=== PATIENT | female | born 1955 | race Caucasian/White ===

== ENCOUNTER → 2016-10-30 | Outpatient (CLI) | payer BC ==
--- NOTE | 2016-10-30 08:55 | MM ---
Reason for exam: additional evaluation requested from prior study. Last mammogram was performed 4 years and 3 months ago. History: Patient is postmenopausal. Physical Findings: Nurse did not find any significant physical abnormalities on exam. MG Diagnostic Mammo w CAD SOPHIA Bilateral CC and MLO view(s) were taken. Prior study comparison: August 08, 2012, bilateral digital screening mammo w/CAD. August 04, 2011, bilateral digital screening mammo w/CAD. There are scattered fibroglandular densities. Finding: There are stable typically benign round, linear calcifications. There is a chronic nodularity. There is no dominant lesion. There is no discrete abnormality. No significant changes in finding since August 08, 2012 and August 04, 2011. These results were verbally communicated with the patient and result sheet given to the patient on 10/30/16. ASSESSMENT: Benign, BI-RAD 2 RECOMMENDATION: Routine screening mammogram of both breasts in 1 year.
== END | disposition home or self-care (01) ==
LOC: RADMAMWWP 08:14
PROVIDERS: ATTEND Family Medicine
DX: R92.8 Other abnormal and inconclusive findings on diagnostic imaging of breast (principal)

== ENCOUNTER → 2019-05-24 | Outpatient (CLI) | payer BC ==
--- NOTE | 2019-05-25 13:38 | MM ---
Reason for exam: screening (asymptomatic). Last mammogram was performed 2 years and 7 months ago. History: Patient is postmenopausal. Physical Findings: A clinical breast exam by your physician is recommended on an annual basis and results should be correlated with mammographic findings. MG 3D Screening Mammo W/Cad Bilateral CC and MLO view(s) were taken. Prior study comparison: October 30, 2016, bilateral MG diagnostic mammo w CAD SOPHIA. March 16, 2016, mammogram. August 08, 2012, bilateral digital screening mammo w/CAD. There are scattered fibroglandular densities. Benign appearing bilateral calcifications, similar back to 2011. No significant changes when compared with prior studies. ASSESSMENT: Benign, BI-RAD 2 RECOMMENDATION: Routine screening mammogram of both breasts in 1 year.
== END | disposition home or self-care (01) ==
LOC: RADMAMWWP 10:03
PROVIDERS: ATTEND Family Medicine
DX: Z12.31 Encounter for screening mammogram for malignant neoplasm of breast (principal)
CPT/HCPCS: 77063; 77067

== ENCOUNTER → 2023-10-14 | Outpatient (CLI) | payer MEDICARE ==
--- NOTE | 2023-10-14 12:32 | US ---
EXAMINATION TYPE: US pelvic complete DATE OF EXAM: 10/14/2023 COMPARISON: NONE CLINICAL INDICATION: Female, 68 years old with history of N81.4 UTEROVAGINAL PROLAPSE, UNSPECIFIED; bulging sensation within vagina TECHNIQUE: TA. Transabdominal sonographic images of the pelvis were acquired. Date of LMP: 10 years ago EXAM MEASUREMENTS: Uterus: 9.1 x 4.5 x 3.4 cm Endometrial Stripe: 0.4 cm Right Ovary: not seen Left Ovary: not seen 1. Uterus: Anteverted wnl 2. Endometrium: wnl 3. Right Ovary: not seen due to atrophy and or bowel gas 4. Left Ovary: not seen due to atrophy and or bowel gas 5. Bilateral Adnexa: wnl 6. Posterior cul-de-sac: wnl IMPRESSION: 1. No evidence for acute pelvic process. For prolapsed vagina consider CT imaging with delayed imagi ng with excreted IV contrast 2. Nonvisualization of ovaries.
== END | disposition home or self-care (01) ==
LOC: RADUSWWP 12:01
PROVIDERS: ATTEND Family Medicine
DX: N81.4 Uterovaginal prolapse, unspecified (principal)
CPT/HCPCS: 76856

== ENCOUNTER → 2024-06-23 | Outpatient (CLI) | payer MEDICARE ==
--- NOTE | 2024-06-26 16:25 | MM ---
Reason for Exam: Screening (asymptomatic). Last mammogram was performed 5 year(s) and 1 month(s) ago. Patient History: Menarche at age 16. First Full-Term at age 27. Postmenopausal. Risk Values: Aide 5 year model risk: 1.7%. NCI Lifetime model risk: 5.9%. Prior Study Comparison: 03/16/2016 Screening Mammogram, Unknown. 10/30/2016 Bilateral Diagnostic Mammogram, [facility]. 05/24/2019 Bilateral Screening Mammogram, [facility]. Tissue Density: There are scattered areas of fibroglandular density. Findings: Analyzed By CAD. The pattern is symmetrical. No significant interval changes are evident. Chronic nodularity is stable benign vascular calcification is present bilaterally. There are some scattered benign punctate calcifications bilaterally. No suspicious groups of microcalcifications, spiculated or lobular masses, architectural distortion or other secondary signs of malignancy are mammographically apparent. Overall Assessment: Benign, BI-RAD 2 Management: Screening Mammogram of both breasts in 1 year. A negative mammogram report should not preclude additional follow up of suspicious palpable abnormalities. Patient should continue monthly self breast exam. A clinical breast exam by your physician is recommended on an annual basis and results should be correlated with mammographic findings. Note on Aide scores and lifetime risk: 1. A Aide score greater than 3% is considered moderate risk. If this is the case, consider specialist referral to assess eligibility for a risk reducing agent. 2. If overall lifetime risk for the development of breast cancer is 20% or higher, the patient may qualify for future screening with alternating mammogram and breast MRI. [facility], , 06/26/2024 4:21 PM. Electronically signed and approved by: Manjinder Barajas D.O. Radiologis
== END | disposition home or self-care (01) ==
LOC: RADMAMWWP 15:26
PROVIDERS: ATTEND Family Medicine
CPT/HCPCS: 77063; 77067